=== PATIENT | male | born 1960 | race Caucasian/White ===

== ENCOUNTER 2021-03-06 07:12 | Day surgery (SDC) | payer MEDICAID, SELFPAY ==
[~2021-03-06] VITALS: Ht 167.6 cm; Wt 59.0 kg
[2021-03-06] MEDS ORDERED: MIDAZOLAM HCL 5 MG/5 ML VIAL ONE (09:20)
[2021-03-06] MEDS ORDERED: MEPERIDINE 100 MG INJ. 100 MG/ML VIAL ONE (09:20)
[2021-03-06 15:33] VITALS: BP_SYST 170
== END 2021-03-06 12:15 | disposition home or self-care (01) ==
LOC: SDS 07:12 → SMU 07:14 → SDS 07:14
PROVIDERS: ATTEND Internal Medicine Gastroenterology
DX: D64.9 Anemia, unspecified (principal); R63.4 Abnormal weight loss; R68.81 Early satiety; E11.9 Type 2 diabetes mellitus without complications; K29.70 Gastritis, unspecified, without bleeding; K29.50 Unspecified chronic gastritis without bleeding; Z87.891 Personal history of nicotine dependence; Z79.84 Long term (current) use of oral hypoglycemic drugs; Z20.822 Contact with and (suspected) exposure to COVID-19
CPT/HCPCS: 36415; 43239; 43248; 87081; 87426; 88305; 88312; 88313; 99152; C1769; G0378; J2175; J2250